=== PATIENT | male | born 1955 | race Caucasian/White ===

== ENCOUNTER → 2019-09-24 | Outpatient (CLI) | payer OTHER ==
[~2019-09-24] MED LIST: ASPIRIN EC81 M1 PO; HYDROCODON-ACE1 EAC7 PO; LEVAQUIN 500 M500 M3 PO; METOPROLOL SUCC25 M1 PO; MEVACOR40 MG PO; PLAVIX 75 MG TA75 M1 PO
--- NOTE | ~2019-09-24 | PF ---
[address] [address] PULMONARY FUNCTION REPORT Name: [place] [facility]i [id number] Admission: 09/24/19 Attend Phys: Leo Field, Discharge: Date of : 51 Report #: [id number] THIS REPORT FOR: //name// CC: Leo Field DATE OF SERVICE: 09/24/2019 REASON FOR STUDY: Chronic obstructive pulmonary disease. Study is technically well performed. Spirometry shows an obstructive pattern on the flow volume loop without blunting. Forced vital capacity is 4.46 liters (112% of predicted). The FEV1 is 1.81 liters (61% of predicted), improving 11% and 200 mL after bronchodilator. The FEV1/FVC ratio is 41%. [id number] is 0.4 liters per second (17% of predicted), improving 41% after bronchodilator. Lung volumes by plethysmography show total lung capacity of 6.96 liters (110% of predicted). FRC is 4.21 liters (123% of predicted). Residual volume is 2.5 liters (104% of predicted). RV/TLC ratio is 36%. Airway resistance is 90% of predicted. Diffusion capacity 7.5 mL per mmHg per minute (42% of predicted) and does not improve after correction for alveolar ventilation. IMPRESSION: Severe airway obstruction with objective bronchodilator response demonstrated. Lung volumes show mild air trapping, but no hyperinflation. Airway resistance is normal. Diffusion capacity is severely impaired. This is consistent with parenchymal loss or replacement, but is not corrected for any abnormalities of carboxyhemoglobin. Clinical correlation is recommended. Recommend assessment for need for home oxygen. By: [id number] Easley MD /nt
== END ==
LOC: M.PUL 09-22 12:50 → M.RAD 08:38 → M.PUL 09:30
DX: J43.8 Other emphysema (principal)